=== PATIENT | female | born 1960 | race Caucasian/White ===

== ENCOUNTER 2017-10-05 09:38 | Observation (INO) | payer BC ==
[~2017-10-05] VITALS: Ht 170.2 cm; Wt 55.0 kg
[2017-10-05] VITALS (15 sets, daily range): BP systolic 109–151; BP diastolic 62–82
[2017-10-05 10:20] LABS: BASOPHILS # (AUTO) 0.1 X10'3 (0-0.2); BASOPHILS % (AUTO) 1.3 % (0-1); EOSINOPHILS # (AUTO) 0.3 X10'3 (0-0.9); EOSINOPHILS % (AUTO) 3.4 % (0-6); HEMATOCRIT 45.9 % (35.0-45.0); HEMOGLOBIN 15.7 g/dl (12.0-16.0); LYMPHOCYTES % (AUTO) 21.5 % (21-51); MEAN CORPUSCULAR HEMOGLOBIN 34.4 PG (27.0-31.0); MEAN CORPUSCULAR HGB CONC 34.2 % (33.0-36.5); MEAN CORPUSCULAR VOLUME 100.5 FL (78-98); MONOCYTES # (AUTO) 0.6 X10'3 (0-0.9); MONOCYTES % (AUTO) 6.5 % (2-12); NEUTROPHILS # (AUTO) 6.4 X10'3 (1.8-7.7); NEUTROPHILS % (AUTO) 67.3 % (42-75); PLATELET COUNT 210 X10'3 (140-440); RED BLOOD COUNT 4.57 X10'6 (4.20-5.60); RED CELL DISTRIBUTION WIDTH 14.2 % (11.5-14.5); WHITE BLOOD COUNT 9.4 X10'3 (4.5-11.0)
[2017-10-05 10:29] LABS: PARTIAL THROMBOPLASTIN TIME 27 SECONDS (22-32)
[2017-10-05 10:37] LABS: ALANINE AMINOTRANSFERASE 26 U/L (12-78); ALBUMIN 4.3 G/DL (3.4-5.0); ALBUMIN/GLOBULIN RATIO 1.3 (1.1-1.5); ALKALINE PHOSPHATASE 81 IU/L (46-116); ANION GAP 7 (8-16); ASPARTATE AMINO TRANSFERASE 15 U/L (10-37); BILIRUBIN,TOTAL 0.7 MG/DL (0.1-1.0); BLOOD UREA NITROGEN 20 MG/DL (7-18); BUN/CREATININE RATIO 24.7 (6.6-38.0); CALCIUM 9.2 MG/DL (8.5-10.1); CHLORIDE 105 MMOL/L (99-107); CREATININE 0.81 MG/DL (0.40-0.90); GLUCOSE 121 MG/DL (70-104); POTASSIUM 4.5 MMOL/L (3.5-5.1); SODIUM 141 MMOL/L (135-145); TOTAL CARBON DIOXIDE 28.9 MMOL/L (24-32); TOTAL PROTEIN 7.5 G/DL (6.4-8.2); eGFR 72 ML/MIN
[2017-10-05] MEDS ORDERED: nitroGLYCERIN 0.4mg SUBLingual tab SL PRN ×2 (11:25→11:55)
[2017-10-05] MEDS ORDERED: normal saline 1000ML IV soln IVB ONE (11:25)
[2017-10-05] MEDS ORDERED: albuterol 2.5 MG/3 ML nebule NEB PRN (11:55)
[2017-10-05] MEDS ORDERED: metoprolol tartrate 1mg/ml inj IV PRN (11:55)
[2017-10-05] MEDS ORDERED: ondansetron/PF 4mg/2ml inj IV PRN (11:55)
[2017-10-05] MEDS ORDERED: magnesium hydroxide 30ml (MOM) UD suspension PO PRN (11:55)
[2017-10-05] MEDS ORDERED: regadenoson 0.4mg/5ml syringe IV ONE ×2 (11:55→14:19)
[2017-10-05] MEDS ORDERED: mag hydrox/Alum hydrox/simeth 30ml oral suspension PO PRN (11:55)
[2017-10-05] MEDS ORDERED: acetaminophen 325mg tablet PO PRN ×2 (11:55)
[2017-10-05] MEDS ORDERED: aminophylline 250mg/10ml inj. IV PRN (11:55)
[2017-10-05] MEDS ORDERED: HYDROcodone/acetaminophen 5mg/325mg tablet PO PRN (11:55)
[2017-10-05] MEDS ORDERED: aminophylline inj. 10 ML IV ONE (14:19)
[2017-10-05] MEDS ORDERED: temazepam 15mg capsule PO PRN (21:00)
== END 2017-10-05 17:00 | disposition home or self-care (01) ==
LOC: ER 09:40 → ED HOLD 14:02
PROVIDERS: ADMIT Hospitalist; ATTEND Hospitalist
DX: R07.89 Other chest pain (principal); R42 Dizziness and giddiness; F17.200 Nicotine dependence, unspecified, uncomplicated; I34.1 Nonrheumatic mitral (valve) prolapse; J44.9 Chronic obstructive pulmonary disease, unspecified; J45.909 Unspecified asthma, uncomplicated; Z82.3 Family history of stroke; Z90.710 Acquired absence of both cervix and uterus
CPT/HCPCS: 36415; 71045; 78452; 80053; 84484; 85025; 85610; 85730; 93005; 93017; 93306; 96360; 99285; A9500; G0378; J0280; J7030

== ENCOUNTER 2018-08-05 15:19 | Emergency (ER) | payer BC ==
[~2018-08-05] VITALS: Ht 170.2 cm; Wt 58.8 kg
[2018-08-05 16:07] VITALS: BP 114/69
--- NOTE | 2018-08-05 16:32 | NUR ---
PER [employer]GE [employer]ADER, PT WAS TIRED OF WAITING AND LWOBS. TOOL RENTAL TECHNICIAN NOTIFIED
== END 2018-08-05 16:34 | disposition left against medical advice (07) ==
LOC: ER 15:20
DX: J00 Acute nasopharyngitis [common cold] (principal); R05 Cough; R09.89 Other specified symptoms and signs involving the circulatory and respiratory systems; Z53.21 Procedure and treatment not carried out due to patient leaving prior to being seen by health care provider

== ENCOUNTER 2019-06-04 09:25 | Day surgery (SDC) | payer BC ==
[2019-06-04] MEDS ORDERED: LIDOcaine 2% 5ml jelly ONE (10:05)
== END 2019-06-04 11:27 | disposition home or self-care (01) ==
LOC: WOUND CARE 09:25
PROVIDERS: ATTEND Surgery
DX: S61.412A Laceration without foreign body of left hand, initial encounter (principal); J45.909 Unspecified asthma, uncomplicated; J43.9 Emphysema, unspecified; M81.0 Age-related osteoporosis without current pathological fracture; F17.200 Nicotine dependence, unspecified, uncomplicated; X58.XXXA Exposure to other specified factors, initial encounter; Y93.89 Activity, other specified; Y92.89 Other specified places as the place of occurrence of the external cause; Y99.8 Other external cause status
CPT/HCPCS: 97597; A4663; A6021; A6154; A6446

== ENCOUNTER 2019-06-11 09:29 | Day surgery (SDC) | payer BC ==
[2019-06-11] MEDS ORDERED: LIDOcaine 2% 5ml jelly ONE (09:47)
== END 2019-06-11 10:37 | disposition home or self-care (01) ==
LOC: WOUND CARE 09:29
PROVIDERS: ATTEND Surgery
DX: S61.412D Laceration without foreign body of left hand, subsequent encounter (principal); J45.909 Unspecified asthma, uncomplicated; J43.9 Emphysema, unspecified; M81.0 Age-related osteoporosis without current pathological fracture; F17.200 Nicotine dependence, unspecified, uncomplicated; X58.XXXD Exposure to other specified factors, subsequent encounter
CPT/HCPCS: 97597; A4663; A6021; A6154; A6446

== ENCOUNTER 2019-10-08 09:27 | Inpatient (IN) | payer BC ==
[~2019-10-08] VITALS: Ht 170.2 cm; Wt 56.5 kg
[2019-10-08 10:07] LABS: BASOPHILS % (AUTO) 0.5 % (0-1); EOSINOPHILS # (AUTO) 0.1 X10'3 (0-0.9); EOSINOPHILS % (AUTO) 0.9 % (0-6); HEMATOCRIT 48.1 % (35.0-45.0); HEMOGLOBIN 16.4 g/dl (12.0-16.0); LYMPHOCYTES # (AUTO) 1.6 X10'3 (1.1-4.8); MEAN CORPUSCULAR HEMOGLOBIN 34.9 PG (27.0-31.0); MEAN CORPUSCULAR HGB CONC 34.1 g/dL (33.0-36.5); MEAN CORPUSCULAR VOLUME 102.4 FL (78-98); MEAN PLATELET VOLUME 9.1 FL (7.4-10.4); MONOCYTES # (AUTO) 0.6 X10'3 (0-0.9); MONOCYTES % (AUTO) 6.6 % (2-12); NEUTROPHILS # (AUTO) 6.9 X10'3 (1.8-7.7); PLATELET COUNT 211 X10'3 (140-440); RED CELL DISTRIBUTION WIDTH 13.6 % (11.5-14.5); WHITE BLOOD COUNT 9.2 X10'3 (4.5-11.0)
[2019-10-08 10:13] LABS: PARTIAL THROMBOPLASTIN TIME 28 SECONDS (22-32)
[2019-10-08 10:22] LABS: ALANINE AMINOTRANSFERASE 24 U/L (12-78); ALBUMIN 4.6 G/DL (3.4-5.0); ALBUMIN/GLOBULIN RATIO 1.4 (1.1-1.5); ALKALINE PHOSPHATASE 90 IU/L (46-116); ANION GAP 9 (8-16); ASPARTATE AMINO TRANSFERASE 16 U/L (10-37); BILIRUBIN,TOTAL 0.7 MG/DL (0.1-1.0); BLOOD UREA NITROGEN 10 MG/DL (7-18); BUN/CREATININE RATIO 11.5 (6.6-38.0); CALCIUM 9.5 MG/DL (8.5-10.1); CHLORIDE 105 MMOL/L (99-107); CREATININE 0.87 MG/DL (0.40-0.90); GLUCOSE 123 MG/DL (70-104); POTASSIUM 4.6 MMOL/L (3.5-5.1); SODIUM 142 MMOL/L (135-145); TOTAL CARBON DIOXIDE 28.1 MMOL/L (24-32); TOTAL PROTEIN 7.9 G/DL (6.4-8.2); eGFR 66 ML/MIN
[2019-10-08 11:01] LABS: CLARITY,URINE CLEAR (Clear); COLOR,URINE STRAW (Yellow); GLUCOSE, URINE NEGATIVE (Neg); KETONES,URINE NEGATIVE (Neg); LEUKOCYTE ESTERASE ,URINE NEGATIVE (Neg); NITRITES, URINE NEGATIVE (Neg); OCCULT BLOOD,URINE TRACE-INTACT (Neg); PROTEIN,URINE NEGATIVE (Neg); UROBILINOGEN,URINE 0.2 E.U/dL (0.2-1.0)
[2019-10-08 11:02] LABS: UA COLLECTION TYPE CLN CATCH MIDSTREAM
[2019-10-08] MEDS ORDERED: OMEP40CA13 PO (11:07)
[2019-10-08 11:11] LABS: BACTERIA,URINE NONE SEEN /HPF (Neg); MUCUS STRANDS NONE SEEN /LPF (Neg); RBC,URINE NONE SEEN /HPF (0-2); SQUAMOUS EPITHELIAL CELL,UR FEW /LPF (FEW); WBC,URINE NONE SEEN /HPF (0-4)
[2019-10-08] MEDS ORDERED: enoxaparin 100mg/ml syringe SUBCUT ONE (11:55)
[2019-10-08] MEDS ORDERED: nicotine 21mg patch - 24 hr TD ONE (12:05)
--- NOTE | 2019-10-08 12:05 | NUR ---
MILES Ramon AT BEDSIDE ASSESSING PT.
[2019-10-08] MEDS ORDERED: normal saline 1000ml 1,000 ML IV SCH (12:34)
[2019-10-08] MEDS ORDERED: potassium CL 10mEq/100ml bag 100 ML IV PRN ×2 (12:35)
[2019-10-08] MEDS ORDERED: potassium Cl 20 mEq SR tablet PO PRN ×2 (12:35)
[2019-10-08] MEDS ORDERED: magnesium Cl slow-release 64mg tablet PO PRN (12:35)
[2019-10-08] MEDS ORDERED: morphine 2 MG/ML inj. syringe IV PRN (12:35)
[2019-10-08] MEDS ORDERED: ondansetron/PF 4mg/2ml inj IV PRN (12:35)
[2019-10-08] MEDS ORDERED: magnesium 4gm in 100ml NS 100 ML IV PRN (12:35)
[2019-10-08] MEDS ORDERED: magnesium 2GM in 50ml NS 50 ML IV PRN (12:35)
[2019-10-08] MEDS ORDERED: acetaminophen 325mg tablet PO PRN (12:35)
[2019-10-08] MEDS: nicotine 21mg patch - 24 hr TD ONE (12:36)
[2019-10-08] MEDS ORDERED: NO HOME MEDS (13:15)
--- NOTE | 2019-10-08 14:45 | NUR ---
Patient in room ED 1. I have received report from vinay carroll rn and had the opportunity to ask questions and assume patient care.
--- NOTE | 2019-10-08 14:45 | NUR ---
pt was taken to floor 310a and bedside report was given to emanuel pedraza.
[2019-10-08 15:45] VITALS: BP 139/94
[2019-10-08 18:00] VITALS: BP 149/77
--- NOTE | 2019-10-08 18:19 | NUR ---
received report from REIC Guerrier
[2019-10-08] MEDS: K and/or MAG REPLACEMENT MC SCH (20:00)
[2019-10-08] MEDS: heparin, porcine 5000 units/ml vial SQ SCH (20:08)
[2019-10-08] MEDS ORDERED: temazepam 15mg capsule PO PRN (21:00)
[2019-10-08 22:00] VITALS: BP 132/77
--- NOTE | 2019-10-08 23:54 | NUR ---
pt on tele 25, television actor notified
[2019-10-09] VITALS (23 sets, daily range): BP systolic 108–165; BP diastolic 70–103
[2019-10-09 04:16] LABS: BASOPHILS # (AUTO) 0.1 X10'3 (0-0.2); BASOPHILS % (AUTO) 0.8 % (0-1); EOSINOPHILS # (AUTO) 0.3 X10'3 (0-0.9); EOSINOPHILS % (AUTO) 3.8 % (0-6); HEMOGLOBIN 14.7 g/dl (12.0-16.0); LYMPHOCYTES % (AUTO) 32.4 % (21-51); MEAN CORPUSCULAR HEMOGLOBIN 35.3 PG (27.0-31.0); MEAN CORPUSCULAR HGB CONC 34.2 g/dL (33.0-36.5); MEAN PLATELET VOLUME 9.5 FL (7.4-10.4); MONOCYTES # (AUTO) 0.9 X10'3 (0-0.9); MONOCYTES % (AUTO) 9.5 % (2-12); NEUTROPHILS # (AUTO) 4.9 X10'3 (1.8-7.7); NEUTROPHILS % (AUTO) 53.5 % (42-75); PLATELET COUNT 183 X10'3 (140-440); RED BLOOD COUNT 4.17 X10'6 (4.20-5.60); RED CELL DISTRIBUTION WIDTH 13.5 % (11.5-14.5); WHITE BLOOD COUNT 9.2 X10'3 (4.5-11.0)
[2019-10-09 04:33] LABS: ALBUMIN 3.8 G/DL (3.4-5.0); ANION GAP 9 (8-16); BLOOD UREA NITROGEN 16 MG/DL (7-18); BUN/CREATININE RATIO 19.8 (6.6-38.0); CALCIUM 9.1 MG/DL (8.5-10.1); CHLORIDE 106 MMOL/L (99-107); CREATININE 0.81 MG/DL (0.40-0.90); GLUCOSE 84 MG/DL (70-104); MAGNESIUM 1.9 MG/DL (1.5-2.4); POTASSIUM 4.3 MMOL/L (3.5-5.1); SODIUM 142 MMOL/L (135-145); TOTAL CARBON DIOXIDE 27.4 MMOL/L (24-32); TROPONIN I < 0.04 NG/ML (0.0-0.05); eGFR 72 ML/MIN
[2019-10-09] MEDS ORDERED: metoprolol tartrate 1mg/ml inj IV PRN (05:55)
[2019-10-09] MEDS ORDERED: regadenoson 0.4mg/5ml syringe IV ONE (05:55)
[2019-10-09] MEDS ORDERED: aminophylline 250mg/10ml inj. IV PRN (05:55)
[2019-10-09] MEDS ORDERED: nitroGLYCERIN 0.4mg SUBLingual tab SL PRN (05:55)
--- NOTE | 2019-10-09 06:22 | NUR ---
gave report to ERIC Stokes
--- NOTE | 2019-10-09 06:30 | NUR ---
Patient in room MED 310. I have received report from Zoë REYES and had the opportunity to ask questions and assume patient care.
[2019-10-09] MEDS: K and/or MAG REPLACEMENT MC SCH ×2 (08:00→20:00)
[2019-10-09 08:52] LABS: CHOLESTEROL 180 MG/DL (0-200); HDL CHOLESTEROL 60 MG/DL (35-60); LDL CHOLESTEROL 104 MG/DL (50-100); TRIGLYCERIDES 109 MG/DL (20-135)
[2019-10-09] MEDS: heparin, porcine 5000 units/ml vial SQ SCH (09:29)
[2019-10-09] MEDS ORDERED: pneumococcal 23-VAL P-sac vacc 25 mcg/0.5ml vial IMVAC ONE ×2 (11:10→12:30)
--- NOTE | 2019-10-09 12:34 | NUR ---
310 Man Escobar. Patient is having runs of V Tach up to 7. Pt states she can feel it. She is anxious and wanting to leave AMA. Discussed danger with pt and and she agreed to stay for test
[2019-10-09] MEDS: nicotine 14mg patch - 24hr TD SCH (13:30)
[2019-10-09] MEDS: metoprolol tartrate 25mg tablet PO SCH ×2 (15:00→20:39)
[2019-10-09] MEDS ORDERED: LIDOcaine 1% (10mg/ml)w/preservative injection 20ml MDV ONE (15:17)
[2019-10-09] MEDS ORDERED: iohexol 350MG/ML 100ml bottle IV ONE (15:17)
[2019-10-09] MEDS ORDERED: heparin 1,000unit/ml 10ml vial 10 ML ONE (15:18)
[2019-10-09] MEDS ORDERED: fentaNYL/PF 50MCG/1 ML 2ML syringe ONE (15:18)
[2019-10-09] MEDS ORDERED: nitroGLYCERIN-Tridil 50MG/D5W 250 ML IV ONE (15:18)
[2019-10-09] MEDS ORDERED: midazolam 2 mg/2 ml injection ONE (15:18)
[2019-10-09] MEDS ORDERED: verapamil 2.5 mg/ml inj IV ONE (15:18)
--- NOTE | 2019-10-09 16:15 | NUR ---
Pt back from laboratory chief. VSS. She did not get any Fentanyl and just a tiny dose of Versed. She is A&O x4. R wrist cath site clear from s/s of complications. She denies any needs at this time.
[2019-10-09] MEDS: normal saline 1000ml 1,000 ML IV SCH (17:07)
[2019-10-09] MEDS ORDERED: NICO-631 TD (17:49)
[2019-10-10 02:00] VITALS: BP 158/78
[2019-10-10] MEDS: normal saline 1000ml 1,000 ML IV SCH (02:35)
[2019-10-10 05:13] LABS: BASOPHILS # (AUTO) 0.1 X10'3 (0-0.2); BASOPHILS % (AUTO) 0.6 % (0-1); EOSINOPHILS # (AUTO) 0.3 X10'3 (0-0.9); EOSINOPHILS % (AUTO) 2.9 % (0-6); HEMATOCRIT 43.2 % (35.0-45.0); HEMOGLOBIN 14.6 g/dl (12.0-16.0); LYMPHOCYTES # (AUTO) 2.3 X10'3 (1.1-4.8); LYMPHOCYTES % (AUTO) 23.5 % (21-51); MEAN CORPUSCULAR HEMOGLOBIN 34.3 PG (27.0-31.0); MEAN CORPUSCULAR HGB CONC 33.8 g/dL (33.0-36.5); MEAN CORPUSCULAR VOLUME 101.7 FL (78-98); MEAN PLATELET VOLUME 9.7 FL (7.4-10.4); MONOCYTES # (AUTO) 0.9 X10'3 (0-0.9); MONOCYTES % (AUTO) 9.1 % (2-12); NEUTROPHILS # (AUTO) 6.3 X10'3 (1.8-7.7); NEUTROPHILS % (AUTO) 63.9 % (42-75); PLATELET COUNT 182 X10'3 (140-440); RED BLOOD COUNT 4.25 X10'6 (4.20-5.60); RED CELL DISTRIBUTION WIDTH 13.3 % (11.5-14.5); WHITE BLOOD COUNT 9.9 X10'3 (4.5-11.0)
[2019-10-10 05:19] LABS: ALBUMIN 3.5 G/DL (3.4-5.0); ANION GAP 8 (8-16); BLOOD UREA NITROGEN 13 MG/DL (7-18); BUN/CREATININE RATIO 19.4 (6.6-38.0); CALCIUM 9.1 MG/DL (8.5-10.1); CHLORIDE 106 MMOL/L (99-107); CREATININE 0.67 MG/DL (0.40-0.90); GLUCOSE 86 MG/DL (70-104); MAGNESIUM 1.9 MG/DL (1.5-2.4); SODIUM 140 MMOL/L (135-145); eGFR 89 ML/MIN
[2019-10-10 06:00] VITALS: BP 163/77
--- NOTE | 2019-10-10 06:22 | NUR ---
Problems reprioritized. Patient report given, questions answered & plan of care reviewed with ERIC Liang.
--- NOTE | 2019-10-10 06:30 | NUR ---
Patient in room MED 310. I have received report from ERIC Gramajo and had the opportunity to ask questions and assume patient care.
[2019-10-10] MEDS: nicotine 14mg patch - 24hr TD SCH (07:52)
[2019-10-10 07:53] VITALS: BP_SYST 119
[2019-10-10] MEDS: metoprolol tartrate 25mg tablet PO SCH (07:53)
[2019-10-10] MEDS: K and/or MAG REPLACEMENT MC SCH (08:00)
--- NOTE | 2019-10-10 08:36 | NUR ---
PAGER ID: [phone] MESSAGE: 310. pt. Viviana Conway. JACQUES Miller saw the pt. this morning and is ok with her discharging. Thank you. ERIC Daniels [id number]
--- NOTE | 2019-10-10 09:18 | NUR ---
PAGER ID: [phone] MESSAGE: 310. pt. Viviana Conway. JACQUES pt. has appointment at 1400 that she needs to make it to today, after she discharges. thank you. ERIC Daniels [id number]
[2019-10-10] MEDS ORDERED: METO25TA6 PO (10:13)
--- NOTE | 2019-10-10 11:18 | NUR ---
PAGER ID: [phone] MESSAGE: 310. pt. Viviana Conway. pt. is ready to go and is just waiting for her discharge. whenever you have a chance to put the orders in. Thank you! ERIC Daniels [phone]
--- NOTE | 2019-10-10 12:11 | NUR ---
pt. discharged from facility at 1155. pt. was wheeled down to private vehicle accompanied by staff and . pt. signed and understood all paperwork. pt. understands to make f/u appointment with her PCP. pt. IV was d/c intact. new meds were called into [facility] in [place]. pt. left with all belongings.
== END 2019-10-10 11:55 | disposition home or self-care (01) | DRG 287 ==
LOC: ER 09:28 → ED HOLD 12:34 → UNDOADMIN 12:39 → ED HOLD 12:39 → MED 3N 14:45 → ED HOLD 14:45
PROVIDERS: ADMIT Internal Medicine; ATTEND Internal Medicine
PROC: 4A023N7 Measurement of Cardiac Sampling and Pressure, Left Heart, Percutaneous Approach (ICD-10-PCS; principal; 2019-10-09)
PROC: B2111ZZ Fluoroscopy of Multiple Coronary Arteries using Low Osmolar Contrast (ICD-10-PCS; 2019-10-09)
PROC: B2151ZZ Fluoroscopy of Left Heart using Low Osmolar Contrast (ICD-10-PCS; 2019-10-09)
PROC: 3E0234Z Introduction of Serum, Toxoid and Vaccine into Muscle, Percutaneous Approach (ICD-10-PCS; 2019-10-09)
PROC: 4A02XM4 Measurement of Cardiac Total Activity, External Approach (ICD-10-PCS; 2019-10-09)
DX: I20.9 Angina pectoris, unspecified (principal); I47.2 Ventricular tachycardia; F10.10 Alcohol abuse, uncomplicated; F17.210 Nicotine dependence, cigarettes, uncomplicated; I34.1 Nonrheumatic mitral (valve) prolapse; J43.9 Emphysema, unspecified; K21.9 Gastro-esophageal reflux disease without esophagitis; Z90.710 Acquired absence of both cervix and uterus; Z23 Encounter for immunization; Z88.0 Allergy status to penicillin; Z88.2 Allergy status to sulfonamides; Z88.8 Allergy status to other drugs, medicaments and biological substances; Z71.6 Tobacco abuse counseling; Z79.899 Other long term (current) drug therapy; Z71.41 Alcohol abuse counseling and surveillance of alcoholic
CPT/HCPCS: 36415; 71045; 78452; 80048; 80053; 80061; 81001; 83735; 84484; 85025; 85610; 85730; 87081; 90732; 93005; 93017; 93306; 93458; 96372; 99152; 99285; A4620; A5120; A6258; A9500; C1769; G0378; J0280; J1644; J1650; J2001; J2250; J2785; J3010; J3490; J7030; Q9967

== ENCOUNTER → 2020-05-14 | Emergency (ER) | payer BC ==
[~2020-05-14] VITALS: Ht 170.2 cm; Wt 47.8 kg
[~2020-05-14] MED LIST: ALBU8HFA PO; METO25TA6 PO; NICO-631 TD; NO HOME MEDS; PRED20TA PO
[2020-05-14 08:58] VITALS: BP 144/77
== END | disposition home or self-care (01) ==
LOC: ER 08:55
DX: J30.9 Allergic rhinitis, unspecified (principal); K21.9 Gastro-esophageal reflux disease without esophagitis; J44.9 Chronic obstructive pulmonary disease, unspecified; Z90.710 Acquired absence of both cervix and uterus; Z88.0 Allergy status to penicillin; Z88.2 Allergy status to sulfonamides; Z79.899 Other long term (current) drug therapy
CPT/HCPCS: 99283

== ENCOUNTER 2020-05-29 15:57 | Emergency (ER) | payer BC ==
[~2020-05-29] VITALS: Ht 170.2 cm; Wt 45.5 kg
[~2020-05-29 15:57] MED LIST changes: -PRED20TA PO
--- NOTE | 2020-05-29 19:21 | NUR ---
pT'S HR DROPPED INTO THE 30S. EKG PERFORMED. AWARE CT ORDERED
[2020-05-29] MEDS ORDERED: acetaminophen 325mg tablet PO ONE (21:40)
[2020-05-29] MEDS ORDERED: diphenhydrAMINE 25mg capsule PO ONE (21:40)
[2020-05-29 22:01] VITALS: BP 123/68
== END 2020-05-29 22:03 | disposition home or self-care (01) ==
LOC: ER 15:58
DX: R51.9 Headache, unspecified (principal); R42 Dizziness and giddiness; J44.9 Chronic obstructive pulmonary disease, unspecified; K21.9 Gastro-esophageal reflux disease without esophagitis; F17.200 Nicotine dependence, unspecified, uncomplicated; Z90.710 Acquired absence of both cervix and uterus; Z88.0 Allergy status to penicillin; Z88.2 Allergy status to sulfonamides; Z79.899 Other long term (current) drug therapy
CPT/HCPCS: 70450; 93005; 99285; Q0163

== ENCOUNTER 2024-04-25 16:48 | Emergency (ER) | payer BC, MEDICARE ==
[~2024-04-25] VITALS: Ht 170.2 cm; Wt 41.0 kg
[~2024-04-25 16:48] MED LIST changes: -ALBU8HFA PO; +LOP25T PO; -METO25TA6 PO
[2024-04-25 17:23] VITALS: TEMP 98.2
[2024-04-25] MEDS: ketorolac trometh 30MG/ML vial 30 MG/ML VIAL IV ONE (18:07)
[2024-04-25 18:25] LABS: BASOPHILS % (AUTO) 0.7 % (0-1); EOSINOPHILS # (AUTO) 0.2 X10'3 (0-0.9); EOSINOPHILS % (AUTO) 2.3 % (0-6); HEMOGLOBIN 14.7 g/dl (12.0-16.0); LYMPHOCYTES # (AUTO) 1.5 X10'3 (1.1-4.8); LYMPHOCYTES % (AUTO) 21.8 % (21-51); MEAN CORPUSCULAR HGB CONC 33.5 g/dL (33.0-36.5); MEAN CORPUSCULAR VOLUME 101.6 FL (78-98); MEAN PLATELET VOLUME 8.5 FL (7.4-10.4); MONOCYTES # (AUTO) 0.7 X10'3 (0-0.9); MONOCYTES % (AUTO) 9.8 % (2-12); NEUTROPHILS # (AUTO) 4.4 X10'3 (1.8-7.7); NEUTROPHILS % (AUTO) 65.4 % (42-75); PLATELET COUNT 173 X10'3 (140-440); RED BLOOD COUNT 4.33 X10'6 (4.20-5.60); RED CELL DISTRIBUTION WIDTH 14.2 % (11.5-14.5); WHITE BLOOD COUNT 6.7 X10'3 (4.5-11.0)
[2024-04-25 18:38] LABS: ALANINE AMINOTRANSFERASE 21 U/L (12-78); ALBUMIN 3.6 G/DL (3.4-5.0); ALBUMIN/GLOBULIN RATIO 1.3 (1.1-1.5); ALKALINE PHOSPHATASE 69 IU/L (46-116); ANION GAP 11 (8-16); ASPARTATE AMINO TRANSFERASE 17 U/L (10-37); BILIRUBIN,TOTAL 0.8 MG/DL (0.1-1.0); BLOOD UREA NITROGEN 13 MG/DL (7-18); CALCIUM 8.7 MG/DL (8.5-10.1); CHLORIDE 101 MMOL/L (99-107); CREATININE 0.62 MG/DL (0.40-0.90); GLUCOSE 100 MG/DL (70-104); MAGNESIUM 1.8 MG/DL (1.5-2.4); POTASSIUM 3.9 MMOL/L (3.5-5.1); SODIUM 138 MMOL/L (135-145); TOTAL CARBON DIOXIDE 26.4 MMOL/L (24-32); TOTAL PROTEIN 6.4 G/DL (6.4-8.2); eCRCL 59 ML/MIN; eGFR > 90 ML/MIN
[2024-04-25 18:39] LABS: ETHANOL < 10 MG/DL (<10)
[2024-04-25] MEDS: acetaminophen 325mg tablet PO ONE (19:32)
[2024-04-25 19:45] LABS: BILIRUBIN,URINE NEGATIVE (Neg); CLARITY,URINE CLEAR (Clear); COLOR,URINE YELLOW (Yellow); GLUCOSE, URINE NEGATIVE (Neg); KETONES,URINE 15 mg/dl (Neg); LEUKOCYTE ESTERASE ,URINE NEGATIVE (Neg); NITRITES, URINE NEGATIVE (Neg); OCCULT BLOOD,URINE TRACE-INTACT (Neg); PROTEIN,URINE NEGATIVE (Neg); UROBILINOGEN,URINE 0.2 E.U/dL (0.2-1.0)
[2024-04-25 19:53] LABS: UA COLLECTION TYPE CLN CATCH MIDSTREAM
[2024-04-25 19:54] LABS: WBC,URINE 0-4 /HPF (0-4)
[2024-04-25 19:55] LABS: BACTERIA,URINE NONE SEEN /HPF (Neg); MUCUS STRANDS FEW /LPF (Neg); RBC,URINE 0-2 /HPF (0-2); SQUAMOUS EPITHELIAL CELL,UR NONE SEEN /LPF (FEW); TRANSITIONAL EPI CELLS,URINE FEW /HPF
[2024-04-25 20:01] LABS: URINE AMPHETAMINE SCREEN NEGATIVE (Neg); URINE BARBITUATE SCREEN NEGATIVE (Neg); URINE BENZODIAZEPINES SCREEN NEGATIVE (Neg); URINE CANNABINOID SCREEN NEGATIVE (Neg); URINE COCAINE SCREEN NEGATIVE (Neg); URINE METHADONE SCREEN NEGATIVE (Neg); URINE OPIATE SCREEN NEGATIVE (Neg); URINE PHENCYCLIDINE SCREEN NEGATIVE (Neg)
[2024-04-25 20:12] VITALS: BP 147/88; PULSE 71; RESP 18; O2SAT 98
== END 2024-04-25 20:15 | disposition still patient (30) ==
LOC: ER 16:49
DX: R51.9 Headache, unspecified (principal); K21.9 Gastro-esophageal reflux disease without esophagitis; J45.909 Unspecified asthma, uncomplicated; J44.9 Chronic obstructive pulmonary disease, unspecified; Z90.710 Acquired absence of both cervix and uterus; Z88.0 Allergy status to penicillin; Z88.2 Allergy status to sulfonamides; Z88.1 Allergy status to other antibiotic agents; Z88.8 Allergy status to other drugs, medicaments and biological substances
CPT/HCPCS: 36415; 70450; 80053; 80305; 81001; 83735; 85025; 96374; 99285; G0480; J1885; 80320

== ENCOUNTER 2025-06-12 10:12 | Emergency (ER) | payer MEDICARE, BC ==
[~2025-06-12] VITALS: Ht 170.2 cm; Wt 51.3 kg
[~2025-06-12 10:12] MED LIST changes: -LOP25T PO; -NICO-631 TD
[2025-06-12 10:14] VITALS: TEMP 98.5
--- NOTE | 2025-06-12 10:33 | ELECTROCARDIOGRAPH REPORT ---
[facility] Test Date: 2025-06-12 Test Time: 10:31:37 Pat Name: KIERSTEN TENA Department: [facility]- Patient ID: [facility]-[id number] Room: Gender: F Truck Shop Supervisor: : [id number] Requested By: SHASHANK CRAIN Order Number: [id number] Reading MD: Dr. Vicente Rand Measurements Intervals [place] Rate: 100 P: 89 RI: 129 QRS: 106 QRSD: 95 T: -66 QT: 330 QTc: 426 Interpretive Statements Sinus tachycardia Lateral infarct, old Anteroseptal infarct, old Abnormal T, consider ischemia, diffuse leads Electronically Signed On 06-13-2025 18:48:[address] Vicente Rand Please click the below link to view image of tracing.
[2025-06-12] MEDS: magnesium sulf-water 2g/50mL 50 ML IV ONE (10:53)
[2025-06-12] MEDS: azithromycin/NS 500mg/250ml 250 ML IV ONE (10:53)
[2025-06-12 10:56] LABS: MEAN PLATELET VOLUME 9.3 FL (7.4-10.4); RED CELL DISTRIBUTION WIDTH 15.7 % (11.5-14.5)
--- NOTE | 2025-06-12 11:16 | RADIOLOGY REPORT ---
EXAM: DI CHEST,SINGLE VIEW Indication: CP Technique: Single frontal view of the chest was obtained Comparison: None FINDINGS: Lines and Tubes: None Lungs: No focal consolidation. Hyperinflation of the lungs suggestive of chronic obstructive pulmonary disease. Pleura: Trace right pleural effusion. No pneumothorax. Cardiomediastinal contours: Unremarkable Bones: No acute osseous abnormality. IMPRESSION: Trace right pleural effusion.
[2025-06-12 11:17] LABS: ABG BASE EXCESS -1.2 mmol/L (-2.0-3.0); ABG HCO3 27.1 mmol/L (21.0-28.0); ABG OXYGEN SATURATION 97.8 % (94.0-98.0); ABG PCO2 (T) 56.6 mmHg (32.0-45.0); ABG PH (T) 7.296 (7.350-7.450); ABG PO2 (T) 120.0 mmHg (83.0-108.0); ALLEN'S TEST POSITIVE; FCOHb 5.7 % (0.5-1.5); FHHb 2.1 % (0.0-5.0); FIO2 36.0 mmHg/%; FMetHb 0.3 % (0.0-1.5); FO2Hb 91.9 % (94.0-98.0); MODE NASAL CANNULA; PATIENT TEMPERATURE 36.6; TOTAL HEMOGLOBIN 19.3 G/dl (12.0-16.0)
[2025-06-12 11:27] LABS: CREATININE 0.73 MG/DL (0.40-0.90); PHOSPHORUS 4.4 MG/DL (2.3-4.5); PRO BRAIN NATRIURETIC PEPTIDE 9865 PG/ML (0-125); TOTAL CARBON DIOXIDE 34.6 MMOL/L (24-32); eCRCL 61 ML/MIN; eGFR 80 ML/MIN
[2025-06-12 11:30] VITALS: PULSE 100; RESP 22; O2SAT 92
[2025-06-12] MEDS: CefTRIAXone 2gm/D5W 50ml BAG 50 ML IV ONE (11:39)
[2025-06-12] MEDS: normal saline 1000ml 1,000 ML IV ONE (11:39)
[2025-06-12] MEDS: CefTRIAXone 2gm/NS 100ml IVPB 50 ML IV ONE (11:42)
[2025-06-12 12:14] VITALS: PULSE 107; RESP 20; O2SAT 97
--- NOTE | 2025-06-12 12:18 | Physician Documentation ---
History of Present Illness ~ General Chief Complaint: Shortness of Breath Stated Complaint: SOB/EDEMA Time Seen by MD: 10:24 Primary Medical Doctor: none Mode of Arrival: POV History of Present Illness Initial Comments 64-year-old female with a past medical history significant for COPD, prior angiogram in 2018 (reportedly normal per patient), active tobacco use (1 pack/day since age 16), and chronic alcohol use (2 shots of whiskey daily for 20 years) presents with progressive shortness of breath for the past 4 days. She describes dyspnea initially on exertion but now occurring at rest. She reports orthopnea and paroxysmal nocturnal dyspnea (PND), and states she cannot lie flat. She denies chest pain but notes mild nausea and vomiting for the past 2 days. No hemoptysis or leg swelling. She has a known penicillin allergy with lip swelling after exposure. She recalls being told in 2018 she might have MVP but is unsure of the diagnosis; she did not follow up afterward. She continues to smoke daily and drinks alcohol nightly. She denies illicit drug use. On arrival, patient appeared cachectic and tachypneic with increased work of breathing. EKG showed sinus tachycardia with old inferior Q waves. Initial SpO2 was 74%, improved after initiation of nasal cannula. ABG: pH 7.29, PaCO2 56.6 mmHg, HCO3 34 consistent with acute on chronic resp iratory acidosis (acute hypercapnia on background CO2 retention) CBC: Hemoglobin 20 g/dL (marked erythrocytosis) COHb: 5.7% (consistent with chronic smoking) SpO2 and PaO2 now normal on nsasl cannul D-dimer, CMP, influenza, and COVID testing were ordered Medication Reconciliation Allergies: Coded Allergies: Penicillins (Verified Allergy, Unknown, 04/25/24) Sulfa (Sulfonamide Antibiotics) (Verified Allergy, Unknown, 04/25/24) aspirin (Verified Allergy, Unknown, 04/25/24) cephalexin (Verified Allergy, Unknown, 04/25/24) Miscellaneous Medications Home Med List (No Home Medications), (Reported) Past Medical History Past Medical History: Asthma, COPD, GERD Other Past Medical History: MVP COPD S/P angiogram 2018 CAD Past Surgical History: hysterectomy Alcohol Use: None Drug Use: none Lives with: Family Lives In: Home Additional Comment Smoking: one packof cigarettes since the age of 16 years Daily alcohol use- 2 shots of whiskey a day no illicit use of drugs Review of Systems ROS Constitutional: No fever, chills, dizziness, weight gain or loss Eyes: No pain, erythema, discharge, ENT: No sore throat, epistaxis, tinnitus Cardiovascular: reports Shortness of breath. Chest pressure, chest discomfort, palpitations, syncope, lower extremity edema, paroxysmal nocturnal dyspnea Respiratory: reports Shortness of breath and cough present, No hemoptysis Gastrointestinal: No reduced appetite, dysphagia; No nausea, vomiting, diarrhea, hematemesis Integumentary: No change in skin, hair, nails. No swelling, bruising, abrasions Neurologic: No weakness, slurred speech, left sided weakness Psychiatric: No delusions, depression, loss of interest in normal activity or change in sleep pattern, hallucinations, suicidal ideations MSK: Reports pedal edema Endocrine: Reports fatigue, weakness, No polydipsia, polyuria, change in appe tite, heat or cold intolerance, sweating, dry skin Hematological: No bleeding, petechiae, bruising Allergies: No asthma or urticaria Physical Exam Physical Exam Vital Signs: Temperature: 98.5, Source: Oral, Heart Rate: 107, Respiratory Rate: 20, BP: 150/89, Pulse Oximetry: 97, Weight: 51.300 Oxygen Flow Rate: 6.0 Physical Exam Awake , alert, and oriented x4, resting comfortably in the bed, in mild distress HEENT: Atraumatic, normocephalic, EOMI, anicteric sclera ; pallor present Neck: Trachea midline. Supple, full range of motion, no JVD Cardiac: Regular rhythm, regular rate, tachycardic with no murmurs all over the precordium. Respiratory: Equal breath sounds bilaterally, mild wheezing and crackles Gastrointestinal: Abdomen symmetric, non-distended, soft, no tenderness on palpation no guarding or rigidity, no hepatosplenomegaly Musculoskeletal: 3+ pedal edema, no cyanosis Neurological: Mental status exam: alert and consciousness, orientation, memory, speech - Cranial nerve test: Cranial nerves 2-12 intact - Motor system: Nutrition, Tone 3+, Power 5/5, no involuntary movements - Sensory system: Intact - Reflex testing: Biceps, triceps and knee reflexes 1+ - Cerebellar: Normal Skin: Warm and dry Progress Results/Orders Results/Orders Orders - SHASHANK CRAIN DO Chest,Single View (06/12/25 10:21) Monitor (06/12/25 10:21) Saline Lock (06/12/25 10:21) Oxygen (06/12/25 10:21) * Rt Notification Q1H (06/12/25 10:40) Methylprednisolone Sod Succ (Solumedrol (06/12/25 10:40) Culture Blood (06/12/25 10:42) Completed Orders - SHASHANK CRAIN DO Chest,Single View (06/12/25 10:21) Cbc/Diff (06/12/25 10:21) PBNP (06/12/25 10:21) Electrocardiogram (06/12/25 10:21) Hs Troponin I W Calculations (06/12/25 10:21) Hs Troponin I W Calculations (06/12/25 12:21) Hs Troponin I W Calculations (06/12/25 13:21) Albuterol 2.5mg/3ml Nebule (Proventil 2. (06/12/25 10:40) Magnesium Sulf-Water 2g/50ml (Magnesium (06/12/25 10:40) Azithromycin/Ns 500mg/250ml (Zithromax/N (06/12/25 10:45) ESR (06/12/25 10:42) Influenza Type A&B Rapid Test (06/12/25 10:42) Ceftriaxone 2gm/Ns 100ml Ivpb (Rocephin (06/12/25 10:45) C-Reactive Protein (06/12/25 10:32) MG (06/12/25 10:32) PHOS (06/12/25 10:32) Ceftriaxone 2gm/D5w 50ml Bag (Rocephin 2 (06/12/25 11:30) Iohexol 350mg/Ml 100ml (Omnipaque 350mg/ (06/12/25 11:39) Medications Received in ER Medications (Trade) Dose Ordered Sig/Maddi Route PRN Reason Start Time Stop Time Status Last Admin Dose Admin (SoluMEDROL 125mg inj) 125 mg ONCE ONCE IV 06/12/25 10:40 06/12/25 10:42 DC 06/12/25 10:53 125 MG Magnesium Sulfate 50 ml @ 100 mls/hr ONCE ONCE IV 06/12/25 10:40 06/12/25 11:09 DC 06/12/25 10:53 100 MLS/HR Azithromycin 250 ml @ 250 mls/hr ONCE ONCE IV 06/12/25 10:45 06/12/25 11:44 DC 06/12/25 10:53 250 MLS/HR Sodium Chloride 1,000 ml @ 1,000 mls/hr ONCE ONCE IV 06/12/25 11:05 06/12/25 12:04 DC 06/12/25 11:39 1,000 MLS/HR Ceftriaxone Sodium/Dextrose 50 ml @ 100 mls/hr ONCE ONCE IV 06/12/25 11:30 06/12/25 11:59 DC 06/12/25 11:39 100 MLS/HR Vital Signs 06/12/25 06/12/25 06/12/25 06/12/25 10:14 10:47 11:30 11:38 Temp 98.5 Pulse 94 98 100 101 Resp 16 13 22 22 B/P (MAP) 137/88 153/92 (112) 150/89 (109) Pulse Ox 99 92 92 99 O2 Flow Rate 0 6.0 6.0 06/12/25 06/12/25 06/12/25 06/12/25 12:14 12:21 13:21 14:45 Pulse 107 104 96 98 Resp 20 27 24 24 B/P (MAP) 101/68 (79) 108/67 (81) 128/78 (95) Pulse Ox 97 98 94 94 O2 Flow Rate 6.0 6.0 4.0 06/12/25 15:15 Pulse 101 Resp 24 B/P (MAP) 118/68 (85) Pulse Ox 95 O2 Flow Rate 4.0 Laboratory Tests Test 06/12/25 10:31 06/12/25 10:32 06/12/25 11:10 06/12/25 12:13 Lactic Acid Level 1.4 White Blood Count 7.5 Red Blood Count 5.78 H Hemoglobin 20.4 *H Hematocrit 61.9 *H Mean Corpuscular Volume 107.1 H Mean Corpuscular Hemoglobin 35.3 H Mean Corpuscular Hemoglobin Concent 33.0 Red Cell Distribution Width 15.7 H Platelet Count 92 L Mean Platelet Volume 9.3 Neutrophils (%) (Auto) 78.0 H Lymphocytes (%) (Auto) 13.1 L Monocytes (%) (Auto) 8.2 Eosinophils (%) (Auto) 0.2 Basophils (%) (Auto) 0.5 Neutrophils # (Auto) 5.9 Lymphocytes # (Auto) 1.0 L Monocytes # (Auto) 0.6 Eosinophils # (Auto) 0.0 Basophils # (Auto) 0.0 CBC Comment Erythrocyte Sedimentation Rate 1 D-Dimer 2.39 H D-Dimer Comment Sodium Level 140 Potassium Level 4.8 Chloride Level 102 Carbon Dioxide Level 34.6 H Anion Gap 3 L Blood Urea Nitrogen 24 H Creatinine 0.73 Estimated GFR/1.73 m2 80 BUN/Creatinine Ratio 32.9 H Glucose Level 132 H Calcium Level 8.8 Phosphorus Level 4.4 Magnesium Level 2.0 Total Bilirubin 1.0 Aspartate Amino Transf (AST/SGOT) 36 Alanine Aminotransferase (ALT/SGPT) 53 Alkaline Phosphatase 73 Troponin I High Sensitivity 81 *H 81 *H C-Reactive Protein 0.08 Pro-B-Type Natriuretic Peptide 9865 H Total Protein 6.9 Albumin 3.9 Globulin 3.0 Albumin/Globulin Ratio 1.3 Procalcitonin < 0.05 Chemistry Comments Blood Gas Specimen Type Arterial Blood Gas Puncture Site Lr O2 Saturation 97.8 Arterial Blood pH (Temp corrected) 7.296 L Arterial Blood pCO2 (Temp correct) 56.6 H Arterial Blood pO2 (Temp corrected) 120.0 H Arterial Blood PO2/FiO2 Ratio 3.40 Arterial Blood HCO3 27.1 Arterial Blood Base Excess -1.2 Arterial Blood Oxyhemoglobin 91.9 L Arterial Blood Carboxyhemoglobin 5.7 H Arterial Blood Methemoglobin 0.3 Arterial Blood Deoxyhemoglobin 2.1 Rachid Test Positive Blood Gas Hemoglobin 19.3 *H Blood Gas Temperature 36.6 Blood Gas Modality Nasal cannula FiO2 36.0 Blood Gas Critical Value Called To md Olvin Troponin I High Sens Percent Delta 0 Troponin I Hi Sens Absolute Change 0 Test 06/12/25 12:33 06/12/25 12:35 06/12/25 13:36 06/12/25 14:39 SARS-CoV-2 Antigen (Rapid) Negative Influenza Type A Antigen Positive Influenza Type B Antigen Negative Troponin I High Sensitivity 76 *H Troponin I High Sens Percent Delta 6 Troponin I Hi Sens Absolute Change -5 White Blood Count 8.2 Red Blood Count 5.13 Hemoglobin 18.1 *H Hematocrit 54.9 H Mean Corpuscular Volume 107.0 H Mean Corpuscular Hemoglobin 35.3 H Mean Corpuscular Hemoglobin Concent 33.0 Red Cell Distribution Width 15.8 H Platelet Count 78 L Mean Platelet Volume 8.8 Neutrophils (%) (Auto) 96.2 H Lymphocytes (%) (Auto) 2.5 L Monocytes (%) (Auto) 1.2 L Eosinophils (%) (Auto) 0 Basophils (%) (Auto) 0.1 Neutrophils # (Auto) 7.9 H Lymphocytes # (Auto) 0.2 L Monocytes # (Auto) 0.1 Eosinophils # (Auto) 0.0 Basophils # (Auto) 0.0 CBC Comment Microbiology Date/Time Source Procedure Growth Status 06/12/25 12:13 Blood Hand Right Blood Culture - Preliminary NEGATIVE (LESS THAN 24 HOURS) Resulted EKG/XRAY/CT/US/VASC/MRI EKG : Additional Comment EKG was obtained and interpreted by myself showing sinus tachycardic, rate of 100, normal RI interval, narrow QRS, no QT prolongation, right axis, no STEMI. Medical Decision Making Additional information obtaine: old records Findings 1. Acute on Chronic Hypercapnic and Hypoxemic Respiratory Failure (COPD and CHF Exacerbation) Patient presents with dyspnea, orthopnea, and PND, consistent with acute decompensation of COPD ABG shows acute on chronic respiratory acidosis (pH 7.29, pCO 56.6, HCO 34), consistent with CO retention SpO 77% on nasal cannula (ear probe) despite a normal PaO2 indicates true hypoxemia due to severe V/Q mismatch and diffusion impairment from advanced COPD Carboxyhemoglobin (5.7%) from chronic smoking further decreases functional O2- carrying capacity Marked polycythemia (Hgb 20 ) consistent with chronic hypoxia Plan: Continue o2 therapy Maintain SpO2 target 8892% Bronchodilator therapy: Albuterol + Ipratropium nebulizers q4h and PRN Systemic corticosteroid: Methylprednisolone IV 40 mg q12h Antibiotic coverage: gave one dose Azithromycin and ceftriaxone Chest X-ray emphysematous changes 2. Secondary Polycythemia (Compensatory) Elevated Hgb (20 g/dL) due to chronic hypoxemia and tobacco exposure. COHb 5.7% Plan: EPO levels ordered one lit bolus ordered due to volume overload Lactic acid ordered Consider therapeutic phlebotomy if symptomatic or Hct >56% if no improvement 3. Possible Cor Pulmonale / Cardiac Component and CHF Reports orthopnea and PND; could have right heart strain or overlap with LV dysfunction. Plan: Obtain BNP and Echocardiogram to evaluate cardiac function and pulmonary pressures Strict I&O, daily weight Diuresis (IV furosemide) later based on CBC 4. Chronic Tobacco and Alcohol Use Nicotine patch and cessation counseling Thiamine, folate, and multivitamin supplementation She will need Alcohol withdrawl protocol inpatient 5. Malnutrition / Cachexia Nutrition consult for high-protein, high-calorie diet and oral supplementation (Ensure). Monitor electrolytes for refeeding risk. Encourage pulmonary rehabilitation evaluation once stable 6. Penicillin Allergy Avoid penicillin and cross-reactive lactams Use macrolides, doxycycline, or fluoroquinolone Differential Diagnosis Acute hypoxemic respiratory failure CHF and COPD exacerbation Polycythemia- secondary Departure Disposition: LEFT AGAINST MEDICAL ADVICE Impression: Primary Impression: Acute exacerbation of chronic obstructive airways disease Additional Impressions: Acute upper respiratory infection Acute on chronic systolic heart failure Respiratory distress Acute hypoxic respiratory failure Influenza A Elevated troponin Referrals: NO PRIMARY CARE PROVIDER (PCP) Education Educated: Patient Educated regarding: diagnosis, treatment, prognosis, need for follow up Critical Care Note Total Time (mins): 35 Critical Care Note CRITICAL CARE TIME: [35 ] minutes Treatments/Evaluations: Close monitoring and treatment of unstable vital signs, cardiorespiratory, and neurologic status, while maintaining tight balance of fluid, respiratory, and cardiac interventions. This time includes discussing the case with the patient and the patients family. This time does not include all procedures stated elsewhere in this record. This time also includes reviewing old records, labs and radiological studies. This time includes examining and re- examining the patient. Additionally, this time also includes arranging care with admitting and consulting physicians. Additional Comment Seen with PA/HUMAN RESOURCES EXECUTIVE ASSISTANT This is an attending supervisory note for the resident of record. I have personally participated in care of this patient, has been present during critical and/or lopez portions of the patient's service, participated in the evaluation, and provided major portion of medical decision-making, independently interpreted imaging and laboratory studies and participated in disposition of this patient. This is a 64-year-old female with a known history of alcohol use disorder in ongoing smoking who presented for evaluation of shortness a breath. Was markedly hypoxic with a oxygen saturation in the 60s and 70s per fire. No chest pain or shortness a breath. Did not attempt to treat it. Does not see doctors, does not have any reasonable medical diagnoses. Symptoms has been present for the last five days. GENERAL: Awake, alert, oriented, GCS 15, moderate respiratory distress, ill appearing, answers questions, follows commands appropriately. Examined upon arrival. Markedly purple. Placed in bed 1., myself and full resuscitative team present HEENT: Atraumatic, normocephalic, pupils equal, extraocular muscles intact, sclerae anicteric, mucus membranes moist, oropharynx is clear, no stridor. NECK: supple, full active range of motion, trachea midline, no thyromegaly, no lymphadenopathy, no JVD. CARDIOVASCULAR: Tachycardic and regular rate/rhythm, no murmurs/gallops/rubs, Pulses are 2+ in all extremities and symmetric. Capillary refill less than 2 seconds. PULMONARY: Tachypneic and labored, decreased air movement , moderate respiratory distress, speaking in short sentences, bilateral wheezing, no ronchi, bilateral whole lung rales, no accessory muscle use. GASTROINTESTINAL: Soft, non-tender, non-distended, normal active bowel sounds, no organomegaly, no pulsatile masses, no CVA tenderness. NEUROLOGIC: Lucid with normal mental status. Normal facial symmetry. Moves all extremities symmetrically and with purpose. No truncal ataxia. Speech is fluid without evidence of dysarthria or aphasia, no focal deficits appreciated. MUSCULOSKELETAL: There is full range of motion of all extremities. There is no joint pain or joint swelling or joint erythema. There is no muscle pain or tenderness or swelling. EXTREMITIES: warm, well-perfused, no cyanosis, no clubbing, no edema, no acute deformities. Skin: warm, dry, no rashes or lesions, no jaundice, no petechiae orpurpura. No ecchymosis. PSYCHIATRIC: Normal affect, normal insight, normal concentration. Focused exam: Facility Status: ED Holds, [facility] process The plan was discussed with the patient, who demonstrates clear understanding of the plan and is in agreement with the plan unless otherwise noted in the chart. All questions have been answered, all concerns were addressed unless otherwise documented. I was available throughout their ED stay for frequent reassessment and questions. Differential Diagnoses (considered and possible or likely): [COPD exacerbation, CHF-new onset, ACS, pneumonia, occult bacteremia, COVID, influenza, RSV, upper respiratory infection with the top of the viruses, pulmonary ambulance] ??Differential Diagnoses (considered and unlikely, not requiring evaluation currently): [Unlikely pneumothorax as there was no evidence of trauma] MDM Data Please see HPI for the following: Independent Historians and external Records Review. Historian: [Patient] Independent Historians: ?[EMS, the patient's operations associate] Medication Management: [Reviewed medication list] Social History and determinants: [Reviewed] Please see the body of the note for the following: Any independent interpretations of ECG, imaging studies. All vitals signs/haemodynamics, ordered tests were independently reviewed and interpreted by myself. Nursing triage complaint and vitals reviewed, additional nursing notes were reviewed as available and I agree unless otherwise noted or documented in contradiction in the chart Vital Signs: Independently reviewed Labs: Independently interpreted Imaging: Independently interpreted Old Medical Records: Independently reviewed, see HPI for relevant summary and information Pulse Oximetry: [94% on 6 L] interpreted as [hypoxia] by me [Supervisor Forming Department: Tachycardic Rate, Regular rhythm, no ectopy, sinus tachycardia. reviewed and interpreted by me] Additionally notably showing: [Hemodynamics reviewed. The patient is tachycardic, tachypneic, not hypotensive, continues to require supplemental oxygen. She is normally not on oxygen. CBC initially shows significant hemo concentration concerning for polycythemia vera. No leukocytosis. Slightly decreased platelets. Macrocytosis noted. The thrombocytopenia macrocytosis a concerning for alcohol use disorder. ESR is not elevated. Coagulation panel shows markedly elevated D-dimer. Blood gas shows chronic retention, partially compensated respiratory acidosis. Metabolic panel notable for metabolic compensation of respiratory alkalosis, dehydration, markedly elevated BNP concerning for new diagnosis of congestive heart failure, elevated troponin x3, but stable, most likely demand ischemia. Procalcitonin is normal. Erythropoietin was ordered but pending. She is positive for influenza. Chest x-ray was obtained showing trace pleural effusion. CTA was obtained showing no PE. There is pulmonary edema consistent with a new onset CHF.] Tests considered but not ordered include: [Echocardiogram can be done on an inpatient basis] Social Determinants of Health Impact: Patient was evaluated in [facility], [facility] [place] access to healthcare due to below par ratio of patient to medical providers. [] Comorbid Conditions Impacting Present Evaluation and Care/Treatment: [New onset congestive heart failure, alcoholism, poor health literacy] Management Discussions with other Healthcare Providers: [I intended to speak with the hospitalist regarding admission, however the patient decided to leave against medical advice this] Treatment and Disposition Medication Management (Given or considered): [Breathing treatment, BiPAP,]. See EMR for details Consideration for Hospitalization/Escalation/Deescalation of Care: Admission for observation is necessary, however the patient refuses and wants to leave against medical advice. ?ED Course:?[Despite has a very annie conversation with the patient and explained to her the risks of leaving and known certain terms the patient told me that I have not in the last five days, I am not going to tonight she also stated I will be back tomorrow". Unfortunately the patient has a left against medical advice. ?Shared decision making:?[] Code status:?FULL Please see the full Electronic Medical Record for full details of nursing documentation, medications list, other records of complete past medical history and conditions, vital signs, laboratory studies, and any radiologic study interpretations by radiologists. Portions of this note were completed using [employer] dictation software and as a result there may exist minor errors in spelling. I have reviewed elements of past family and social history and agree as included in note. Signature Scribe Signature: No scribe Attestation: Golden Rae IM Resident, PGY2 Date: Jun 12, 2025 Time: 15:59 This note accurately reflects clinical decisions, work performed by myself, DO OLVIN Bonilla GAURAV, RES Jun 12, 2025 12:18 SHASHANK CRAIN DO Jun 12, 2025 16:00
[2025-06-12] MEDS: albuterol 2.5 MG/3 ML nebule NEB ONE (13:24)
[2025-06-12 13:37] LABS: INFLUENZA TYPE A ANTIGEN RAPID POSITIVE (Negative); INFLUENZA TYPE B ANTIGEN RAPID NEGATIVE (Negative)
--- NOTE | 2025-06-12 13:58 | RADIOLOGY REPORT ---
INDICATION: PE, SOB TECHNIQUE: Serial axial images from the thoracic inlet to the domes of the diaphragm were obtained after administration of 100 mL of Omnipaque 300 intravenously using the CTA PE protocol. Coronal and sagittal images were reconstructed. Multiplanar 3-D Maximum Intensity Projection images (MIP) reconstructions were created by the technologist in the coronal and sagittal planes as part of the CT angiography protocol. Dose lowering techniques have been used including automated exposure control and adjustment of mA and/or kv according to patient size. Comparison: CT CT HEAD on DOS: 04/25/24 FINDINGS: Pulmonary vasculature: No filling defect to suggest pulmonary emboli. Lungs: Pulmonary edema. Hilar, mediastinal and axillary lymph nodes: No enlarged lymph nodes Aorta: Normal in size. Heart: Cardiomegaly with small pericardial effusion. Pleura: Small bilateral pleural effusion, right greater than left. Osseous structures: Normal. Diffuse soft tissue edema. Visualized portion of the abdomen: Grossly unremarkable. DLP is 257.3 mGy-cm. CTDI vol is 29 mGy. IMPRESSION: 1. No evidence of pulmonary embolism. 2. Pulmonary edema with small bilateral pleural effusions, right greater than left. 3. Cardiomegaly with small pericardial effusion. 4. Diffuse soft tissue edema.
[2025-06-12 14:49] LABS: MEAN PLATELET VOLUME 8.8 FL (7.4-10.4); RED CELL DISTRIBUTION WIDTH 15.8 % (11.5-14.5)
[2025-06-12 15:15] VITALS: BP 118/68; PULSE 101; RESP 24; O2SAT 95
== END 2025-06-12 15:54 | disposition left against medical advice (07) ==
LOC: ER 10:13
DX: J44.1 Chronic obstructive pulmonary disease with (acute) exacerbation (principal); R79.89 Other specified abnormal findings of blood chemistry; I50.23 Acute on chronic systolic (congestive) heart failure; J96.01 Acute respiratory failure with hypoxia; J10.1 Influenza due to other identified influenza virus with other respiratory manifestations; F17.200 Nicotine dependence, unspecified, uncomplicated; I25.10 Atherosclerotic heart disease of native coronary artery without angina pectoris; K21.9 Gastro-esophageal reflux disease without esophagitis; I25.2 Old myocardial infarction; Z88.0 Allergy status to penicillin; Z88.2 Allergy status to sulfonamides; Z88.1 Allergy status to other antibiotic agents; Z88.6 Allergy status to analgesic agent; Z90.710 Acquired absence of both cervix and uterus; Z20.822 Contact with and (suspected) exposure to COVID-19
CPT/HCPCS: 36415; 36600; 71045; 71275; 80053; 82668; 82803; 83605; 83735; 83880; 84100; 84145; 84484; 85018; 85025; 85379; 85651; 86140; 87040; 87804; 87811; 93005; 94640; 96365; 96368; 96375; 99291; J0456; J0696; J2919; J7030; Q9967; 94760